=== PATIENT | female | born 1990 | race Caucasian/White ===

== ENCOUNTER 2019-08-08 05:48 | Inpatient (IN) | payer SELFPAY ==
[2019-08-08] MEDS ORDERED: LACTATED RINGERS 1,000 ML ONE (07:22)
[2019-08-08] MEDS ORDERED: LACTATED RINGERS 1,000 ML IV SCH (09:00)
[2019-08-08] MEDS ORDERED: ceFAZolin/Water 2 GM/20 ML 2 GM/20 ML SYRINGE IV NR ×2 (09:00→11:00)
[2019-08-08] MEDS ORDERED: OXYTOCIN 20 UNIT/1000ML DRIP 20 UNITS/1,000 ML BAG IV SCH ×3 (09:00→13:00)
[2019-08-08 09:23] LABS: Basophils # (Auto) 0.1 K/mm3 (0.0-0.1); Basophils % (Auto) 0.7 % (0.0-1.8); Eosinophils # (Auto) 0.2 K/mm3 (0.0-0.4); Eosinophils % (Auto) 2.8 % (0.0-4.3); Hematocrit 34.9 % (30.3-42.9); Lymphocytes # (Auto) 1.7 K/mm3 (1.2-5.4); Lymphocytes % (Auto) 24.4 % (13.4-35.0); Mean Corpuscular HGB Conc 34 % (30-34); Mean Corpuscular Volume 88 fl (79-97); Monocytes # (Auto) 0.5 K/mm3 (0.0-0.8); Platelet Count 224 K/mm3 (140-440); Red Blood Count 3.96 M/mm3 (3.65-5.03); Red Cell Distribution Width 17.6 % (13.2-15.2)
[2019-08-08] MEDS ORDERED: FAMOTIDINE 20 MG/2 ML INJ IV ONE ×2 (10:00→12:00)
[2019-08-08] MEDS ORDERED: BICITRA ORAL LIQD 30ML PO ONE ×2 (10:00→12:00)
[2019-08-08] MEDS ORDERED: METOCLOPRAMIDE 10 MG/2 ML INJ IV ONE ×2 (10:00→10:50)
--- NOTE | 2019-08-08 10:26 | Anesthesia Consultation ---
Anesthesia Consult and Med Hx Date of service: 08/08/19 - Airway Anesthetic Teeth Evaluation: Good ROM Head & Neck: Adequate Mental/Hyoid Distance: Adequate Mallampati Class: Class II Intubation Access Assessment: Probably Good - Pulmonary Exam CTA: Yes - Cardiac Exam Cardiac Exam: RRR - Pre-Operative Health Status ASA Pre-Surgery Classification: ASA2 Proposed Anesthetic Plan: Spinal - Pulmonary Hx Asthma: No - Cardiovascular System Hx Hypertension: No - Central Nervous System Hx Seizures: No Hx Psychiatric Problems: No - Endocrine Hx Renal Disease: No Hx Hypothyroidism: No Hx Hyperthyroidism: No - Hematic Hx Anemia: No Hx Sickle Cell Disease: No - Other Systems Hx Alcohol Use: No
--- NOTE | 2019-08-08 10:27 | Anesthesia Day of Surgery ---
Anesthesia Day of Surgery - Day of Surgery Patient Examined: Yes Patient H&P Reviewed: Yes Patient is NPO: Yes
--- NOTE | 2019-08-08 10:50 | History and Physical Report ---
History of Present Illness Date of examination: 08/08/19 Date of admission: 08/08/19 05:49 Chief complaint: Having contractions. History of present illness: 37+3 wks, x2 previous cesareans. MICHAEL 08/26/2019. Past History Past Surgical History: section - Obstetrical History Expected Date of Delivery: 08/26/19 Actual Gestation: 37 Week(s) 3 Day(s) : 3 Para: 2 Medications and Allergies Allergies Allergy/AdvReac Type Severity Reaction Status Date / Time No Known Allergies Allergy Unverified 08/08/19 07:19 Home Medications Medication Instructions Recorded Confirmed Last Taken Type High Potency Iron 27 MG 1 tab PO BID 08/08/19 08/08/19 08/07/19 21:00 History Tylenol 650 tab PO PRN 08/08/19 08/08/19 08/07/19 10:00 History 650 Active Meds: Active Medications Oxytocin/Sodium Chloride (Pitocin/Ns 20 Unit/1000ml Drip) 20 units in 1,000 mls @ 0 mls/hr IV TITR NAOIME Lactated Ringer's (Lactated Ringers) 1,000 mls @ 2,250 mls/hr IV PREOP NAOMIE Stop: 08/09/19 09:27 Cefazolin Sodium (Ancef/Sterile Water 2 Gm/20 Ml) 2 gm in 20 mls @ 80 mls/hr IV PREOP NR; Protocol Stop: 08/08/19 23:59 Review of Systems All systems: negative - Vital Signs Vital signs: Vital Signs Pulse Pulse Ox 85 94 08/08/19 07:18 08/08/19 07:18 Temp Pulse Resp BP Pulse Ox 85 112/74 96 08/08/19 08:08 08/08/19 07:19 08/08/19 08:08 - Physical Exam Lungs: Positive: Normal air movement Abdomen: Positive: distention. Negative: tenderness, guarding Deep Tendon Reflex Grade: Normal +2 - Obstetrical FHR: category 1 Results Result Diagrams: 08/08/19 09:05 Abnormal lab results 08/08/19 Range/Units 09:05 RDW 17.6 H (13.2-15.2) % All other labs normal. Assessment and Plan - Patient Problems (1) Previous delivery, antepartum condition or complication Current Visit: Yes Status: Acute (2) Request for sterilization Current Visit: Yes Status: Acute Plan to address problem: Patient understtood the permanency of bilateral salpingectomies as well as risks including recanalization with subsequent ectopic . Risks of c/section were fully discussed. Patient gave her consent.
[2019-08-08] MEDS ORDERED: ceFAZolin/STERILE WATER 2 GM/20 ML SYRINGE IV ONE (11:34)
[2019-08-08] MEDS ORDERED: WATER FOR IRRIG STERILE 1,500 ML BOTTLE IR ONE (11:36)
[2019-08-08] MEDS ORDERED: SODIUM CHLORIDE 0.9% IRR 1,500 ML BOTTLE IR ONE (11:36)
[2019-08-08] MEDS ORDERED: PHENYLEPHRINE 10 MG/1 ML INJ SDV ONE (11:48)
[2019-08-08] MEDS ORDERED: BUPIVACAINE/PF (0.5%) 5 MG/1 ML 30 ML VIAL INFILTRATI ONE (11:48)
[2019-08-08] MEDS ORDERED: DEXMEDETOMIDINE 200 MCG/2 ML VIAL IV ONE (11:48)
[2019-08-08] MEDS ORDERED: KETOROLAC 30 MG/1 ML INJ ONE (11:48)
[2019-08-08] MEDS ORDERED: SODIUM CHLORIDE 0.9% 100 ML ONE (11:48)
[2019-08-08] MEDS ORDERED: dexAMETHasone 20 MG/5 ML VIAL ONE (11:48)
[2019-08-08] MEDS ORDERED: ACETAMINOPHEN 325 MG TAB PO PRN (12:35)
[2019-08-08] MEDS ORDERED: LANOLIN/ZINC/DIMETHICONE (LANSINOH) 7 GM TP PRN (12:35)
[2019-08-08] MEDS ORDERED: WITCH HAZEL/ GLYCERIN PAD TP PRN (12:35)
[2019-08-08] MEDS ORDERED: NALOXONE 0.4 MG/1 ML INJ IV PRN (12:35)
[2019-08-08] MEDS ORDERED: MORPHINE 4 MG/1 ML INJ IV PRN (12:35)
--- NOTE | 2019-08-08 12:44 | Operative Report ---
Operative Report Operative Report: Date of surgery: August 08, 2019 Preoperative diagnoses: Active labor, 37 weeks gestation, 2 previous C-sections, request for tubal sterilization Postoperative diagnoses: The same. Operation: Lower segment transverse delivery, bilateral salpingectomies Surgeon:Jordyn Mabry MD Data Processing Control Clerk: Eric Ewing CRNA Anesthesia: Spinal block Estimated blood loss: 300 mL Complications: None Findings: There was a live baby boy in cephalic presentation weighing 3220g, Apgars 8 and 9. The uterus, fallopian tubes and ovaries were grossly normal. There were no adhesions within the pelvis. Procedure in detail: The patient was taken to the operating room and given a spinal block. Patient was placed in the straight supine position and a Adams catheter was inserted. The patient was prepped in the abdomen. The drapes were placed. A timeout was done. With the go ahead from the medical technicians, a Pfannenstiel incision was made. The previous scar which had formed into a keloid was excised. This incision was carried across the subcutaneous layer to the fascia which was also divided transversely. The recti abdominis muscle flaps were stripped from the fascia using a combination of blunt and sharp dissections. The muscles were in the midline to gain access to the anterior parietal peritoneum which was divided after excluding any underlying viscera. The access to the peritoneal cavity was then widened by manual stretching. The bladder blade was applied. The utero vesicle peritoneal flap was divided transversely allowing the bladder to be displaced caudally. The uterine incision was placed in the lower segment transversely. The uterine incision was carried to the decidual layer. The uterine incision was extended on both sides using the bandage scissors. The amniotic sac was ruptured with clear fluid. The head was lifted out of the false maternal pelvis and delivered through the incision using fundal pressure. The airways were bulb suctioned beginning with the mouth. Continuing fundal pressure combined with traction on the mandibular processes of the jaw delivered the rest of the baby. The umbilical cord was double clamped and divided. The baby was carefully transferred to the pediatric team. The placenta was manually removed from the uterine cavity. The uterine cavity was explored and was empty of any placental remnants. The uterine incision was repaired in 2 layers with #1 Vicryl. The surgical line on the uterus was hemostatic. Each fallopian tube was excised from fimbria to the cornual aspect of the uterus by using the LigaSure to thermally coagulate and cut the mesosalpinges before transecting the tubes at the cornua. Hemostasis was great. Blood and clots were cleared from the peritoneal cavity. The anterior parietal peritoneum was repaired with #1 Vicryl. The fascia was repaired with #1 Vicryl. The subcutaneous layer was made hemostatic using the Bovie before the skin was closed subcuticularly with 4-0 Vicryl. There were no complications. The estimated blood loss was 500 mL. All sponges and instrument counts were correct. Patient was safely transferred to the recovery room.
--- NOTE | 2019-08-08 13:19 | Post Anesthesia Evaluation ---
- Post Anesthesia Evaluation Patient Participated: Yes Airway Patent: Yes Stable Respiratory Function: Yes Nausea/Vomiting: No Temp > 96.8F: Yes Pain Manageable: Yes Adequeate Hydration: Yes Anesthesia Complications: No Block Receding Appropriately: Yes
[2019-08-08 15:36] LABS: Basophils % (Auto) 0.2 % (0.0-1.8); Eosinophils % (Auto) 0.2 % (0.0-4.3); Hemoglobin 10.3 gm/dl (10.1-14.3); Lymphocytes # (Auto) 1.1 K/mm3 (1.2-5.4); Lymphocytes % (Auto) 8.8 % (13.4-35.0); Mean Corpuscular HGB Conc 33 % (30-34); Mean Corpuscular Volume 88 fl (79-97); Monocytes # (Auto) 0.2 K/mm3 (0.0-0.8); Monocytes % (Auto) 1.7 % (0.0-7.3); Platelet Count 200 K/mm3 (140-440); Red Blood Count 3.51 M/mm3 (3.65-5.03); Red Cell Distribution Width 17.5 % (13.2-15.2)
[2019-08-08] MEDS ORDERED: D5W/LACTATED RINGERS 1,000 ML IV SCH (17:00)
[2019-08-08] MEDS: ceFAZolin/NS 1 GM/50 ML 1 GM/50 ML BAG IV SCH (20:14)
[2019-08-09] MEDS: KETOROLAC 30 MG/1 ML INJ IV PRN ×2 (00:18→05:21)
[2019-08-09 00:29] LABS: Hematocrit 28.3 % (30.3-42.9); Hemoglobin 9.6 gm/dl (10.1-14.3)
[2019-08-09] MEDS: HYDROcodone/ACETAMINOPHEN 5-325 MG TAB PO PRN ×2 (01:43→10:41)
[2019-08-09] MEDS: ceFAZolin/NS 1 GM/50 ML 1 GM/50 ML BAG IV SCH (06:06)
[2019-08-09] MEDS: PRENATAL VIT27-FE FUMARATE-FOLIC ACID VIT TAB PO SCH (10:40)
[2019-08-09] MEDS: FERROUS SULFATE 325 MG TAB PO SCH (10:40)
[2019-08-09] MEDS ORDERED: SIMETHICONE 80 MG CHEW TAB PO PRN (10:45)
--- NOTE | 2019-08-09 10:45 | Progress Note ---
Assessment and Plan A: /postop day 2 S/P repeat LTCS. Anemia. P: Continue iron supplements. Encouraged ambulation. Subjective - Subjective Date of service: 08/09/19 Principal diagnosis: /postop day 1 S/P repeat LTCS Interval history: /postop day 1 S/P repeat LTCS. Doing well; no complaints. Patient reports: appetite normal, voiding normally, pain well controlled, flatus, ambulating normally, no dizzy ambulation, no nauseated [place]: doing well Objective - Vital Signs Latest vital signs: Vital Signs Temp Pulse Resp BP BP Pulse Ox 08/09/19 07:53 97.9 F 67 18 100/56 98 08/09/19 05:21 18 08/09/19 04:24 97.8 F 65 18 96/62 96 08/09/19 01:43 20 08/09/19 00:18 20 08/09/19 00:17 98.0 F 70 18 95/66 96 08/08/19 21:15 98.3 F 63 18 96/66 98 08/08/19 15:54 97.9 F 57 L 18 114/74 98 08/08/19 14:15 98.0 F 64 18 103/62 08/08/19 13:31 62 16 98/60 98 08/08/19 13:16 65 16 100/62 97 08/08/19 13:01 76 16 113/68 98 08/08/19 12:56 82 16 108/64 8 L 08/08/19 12:51 78 17 94/51 97 08/08/19 12:46 98.4 F 86 15 110/67 97 Intake and Output 08/08/19 08/09/19 08/09/19 23:59 07:59 15:59 Intake Total 390 120 Output Total 301 400 Balance 89 -280 Intake: IV 50 ANCEF/NS 1 GM/50 ML 1 gm 50 In 50 ml @ 100 mls/hr IV Q8H [facility] Rx#:[id number] Oral 340 120 Output: Urine 300 400 Indwelling Catheter 150 Uretheral (Adams) 150 400 Stool 1 Other: Total, Intake Amount 100 120 Total, Output Amount 150 # Voids Void 1 - Exam Cardiovascular: Present: Regular rate, Normal S1, Normal S2, No murmurs Lungs: Present: Clear to auscultation Abdomen: Present: normal appearance, soft, normal bowel sounds. Absent: distention, tenderness, guarding, rigidity Uterus: Present: normal, firm, fundal height below umbilicus. Absent: bogginess, tenderness Extremities: Present: normal. Absent: tenderness, edema Incision: Present: normal, dry, dressed - Labs Labs: Abnormal lab results 08/08/19 08/09/19 Range/Units 14:45 00:18 WBC 12.6 H (4.5-11.0) K/mm3 RBC 3.51 L (3.65-5.03) M/mm3 Hgb 9.6 L (10.1-14.3) gm/dl Hct 28.3 L (30.3-42.9) % RDW 17.5 H (13.2-15.2) % Lymph % (Auto) 8.8 L (13.4-35.0) % Lymph # 1.1 L (1.2-5.4) K/mm3 Seg Neutrophils % 89.1 H (40.0-70.0) % Seg Neutrophils # 11.2 H (1.8-7.7) K/mm3
[2019-08-09] MEDS: DOCUSATE SODIUM 100 MG CAP PO SCH ×2 (14:17→21:49)
[2019-08-09] MEDS ORDERED: IBUPROFEN 600 MG TAB PO PRN (16:28)
[2019-08-09] MEDS: oxyCODONE /ACETAMINOPHEN 5-325MG TAB PO PRN (17:02)
[2019-08-10] MEDS: oxyCODONE /ACETAMINOPHEN 5-325MG TAB PO PRN ×2 (02:05→09:59)
--- NOTE | 2019-08-10 09:52 | Progress Note ---
Assessment and Plan - Patient Problems (1) S/P repeat low transverse Current Visit: Yes Status: Acute Plan to address problem: POD 2 - stable Continue routine postop orders Ambulation encouraged Discharge to home today Follow-up at [facility] as needed or in 1 week for incision check (2) S/P tubal ligation Current Visit: Yes Status: Acute (3) Anemia due to blood loss, acute Current Visit: Yes Status: Acute Plan to address problem: Asymptomatic Continue iron therapy Eat iron-rich foods Subjective - Subjective Date of service: 08/10/19 Principal diagnosis: POD #2; s/p Repeat LTCS and BTL Interval history: see [facility] [employer] - H&P, Operative Report and PP/[employer] Progress Note Patient reports: appetite normal, voiding normally, pain well controlled, flatus, ambulating normally, no dizzy ambulation, no bowel movement [place]: doing well Objective - Vital Signs Latest vital signs: Vital Signs Temp Pulse Resp BP BP Pulse Ox 08/10/19 08:15 97.7 F 68 20 101/35 08/10/19 00:40 97.9 F 78 20 95/66 99 08/09/19 17:02 18 08/09/19 15:43 97.3 F L 72 18 101/61 96 08/09/19 11:25 97.9 F 71 18 103/64 97 Intake and Output 08/09/19 08/10/19 08/10/19 23:59 07:59 15:59 Intake Total 360 260 120 Balance 360 260 120 Intake: Oral 120 Intake, Free Water 360 260 Other: Total, Intake Amount 120 # Voids Void 2 1 - Exam Cardiovascular: Present: Regular rate Lungs: Present: Clear to auscultation Abdomen: Present: normal appearance, soft Vulva: both: normal Uterus: Present: normal, firm, fundal height below umbilicus Extremities: Present: normal Incision: Present: normal, dry, intact Comments: scant lochia
--- NOTE | 2019-08-10 09:55 | Discharge Summary ---
Providers - Providers Date of Admission: 08/08/19 05:49 Date of discharge: 08/10/19 Attending physician: WES GRIMES MD Primary care physician: WES GRIMES MD Hospitalization Reason for admission: active labor, IUP at term Delivery: Procedure: bilateral tubal ligation, repeat low transverse Episiotomy: none Laceration: none Incision: normal, dry, intact Other procedures: none complications: none Discharge diagnosis: IUP at term delivered baby: male Hospital course: Uncomplicated Condition at discharge: Stable Disposition: - TO HOME OR SELFCARE - Discharge Diagnoses (1) S/P repeat low transverse Status: Acute (2) S/P tubal ligation Status: Acute (3) Anemia due to blood loss, acute Status: Acute Comment: Asymptomatic Continue taking iron pills Eat iron-rich foods Plan - Discharge Medications Prescriptions: Ferrous Sulfate [Feosol 325 MG tab] 325 mg PO QDAY #30 tablet Ibuprofen [Motrin 600 MG tab] 600 mg PO Q8H PRN #30 tablet PRN Reason: Pain, Mild (1-3) HYDROcodone/APAP 5-325 [[place] 5/325] 1 - 2 each PO Q4HR PRN #30 tablet PRN Reason: Pain - Provider Discharge Summary Activity: routine, no sex for 6 weeks, no heavy lifting 4 weeks, no strenuous exercise Diet: routine Instructions: routine Additional instructions: [] Smoking cessation referral if applicable(refer to patient education folder for contact #) [] Refer to [facility] Booklet Call your doctor immediately for: * Fever > 100.5 * Heavy vaginal bleeding ( >1 pad per hour) * Severe persistent headache * Shortness of breath * Reddened, hot, painful area to leg or breast * Drainage or odor from incision. * Keep incision clean and dry at all times and follow doctor's instructions regarding bathing/showering - Follow up plan Follow up: WES GRIMES MD [Primary Care Provider] - 7 Days (Follow-up at [facility] as needed or in 1 week for incision check)
[2019-08-10] MEDS: PRENATAL VIT27-FE FUMARATE-FOLIC ACID VIT TAB PO SCH (09:58)
[2019-08-10] MEDS: DOCUSATE SODIUM 100 MG CAP PO SCH (09:59)
[2019-08-10] MEDS: FERROUS SULFATE 325 MG TAB PO SCH (10:28)
[2019-08-10 13:44] VITALS: BP 116/40
== END 2019-08-10 13:55 | disposition home or self-care (01) | DRG 784 ==
LOC: TRG 05:48 → APU 05:49 → OB 14:22
PROVIDERS: ADMIT Obstetrics & Gynecology; ATTEND Obstetrics & Gynecology
PROC: 10D00Z1 Extraction of Products of Conception, Low, Open Approach (ICD-10-PCS; principal; 2019-08-08)
PROC: 0UB70ZZ Excision of Bilateral Fallopian Tubes, Open Approach (ICD-10-PCS; 2019-08-08)
DX: O34.211 Maternal care for low transverse scar from previous cesarean delivery (principal); D62 Acute posthemorrhagic anemia; Z3A.37 37 weeks gestation of pregnancy; Z37.0 Single live birth; Z30.2 Encounter for sterilization; O90.81 Anemia of the puerperium
CPT/HCPCS: 36415; 85014; 85018; 85025; 86850; 86900; 86901; 88302; G0378; J0690; J1100; J1885; J2370; J2590; J2765; J3490; J7120; J7121